=== PATIENT | female | born 1950 | race American Indian/Alaskan Native ===

== ENCOUNTER 2017-01-29 11:29 | Emergency (ER) | payer MEDICARE ==
--- NOTE | 2017-01-29 11:56 | Emergency Department Report ---
Entered by JAMMIE NIELSEN, acting as scribe for ARIES BAÑUELOS NP. Stated Complaint: TRIGEMINAL FLARE UP Time Seen by Provider: 01/29/17 11:49 - HPI History of Present Illness: 66 y/o female PMHx of TMJ, presents with jaw pain. She denies toothache - ROS Review of Systems: + jaw pain - Exam Physical Exam: GENERAL: The patient is a well-developed, well-nourished male in no apparent distress. Patient is alert and oriented x3. ENT: Left TMJ tenderness MSE screening note: Focused history and physical exam performed. Due to findings the following was ordered: ED Disposition for MSE Condition: Stable This documentation as recorded by the scribe,JAMMIE NIELSEN,accurately reflects the service I personally performed and the decisions made by ,ARIES BAÑUELOS, PASTE MAKER.
[2017-01-29] MEDS ORDERED: ZOFRAN IV ONE (15:46)
[2017-01-29] MEDS ORDERED: TORADOL IV ONE (15:46)
[2017-01-29] MEDS ORDERED: DILAUDID IV ONE ×2 (15:46→17:39)
[2017-01-29 17:01] VITALS: BP 144/78
--- NOTE | 2017-01-29 18:20 | Emergency Department Report ---
ED General Adult HPI - General Chief complaint: Neuro Symptoms/Deficit Stated complaint: TRIGEMINAL FLARE UP Time Seen by Provider: 01/29/17 11:49 Source: patient Mode of arrival: Ambulatory Limitations: No Limitations - History of Present Illness Initial comments: Chief complaint: Left face pain HPI: 56-year-old female with a past medical history hypertension and trigeminal neuralgia presents to the hospital with exacerbation of her chronic pain. Patient states she has been dealing with this pain for "a long time". She then evaluated by several neurologist and had trials of multiple medications without any relief. Patient currently taking gabapentin. Pain changes in sensation and does not always feel the same. Pain is currently rated 10/10 in intensity. Worse with palpation, chewing, and movement of face/jaw. Patient chronically has difficulty chewing and drinking cold liquids and only is able to tolerate temperature liquids and drink nutritional supplements. Patient's compliant with gabapentin for pain. He denies any toothache, fevers, or suspicion for new pathology. Patient states she has chronic facial asymmetry in her left side appears more puffy than the right. Severity scale (0 -10): 6 - Related Data Previous Rx's Medication Instructions Recorded Last Taken Type Oxycodone HCl/Acetaminophen 1 each PO Q6HR PRN #20 tablet 01/29/17 Unknown Rx [Percocet 10/325 mg] Allergies Allergy/AdvReac Type Severity Reaction Status Date / Time No Known Allergies Allergy Unverified 01/29/17 11:48 ED Review of Systems ROS: Stated complaint: TRIGEMINAL FLARE UP Other details as noted in HPI Comment: All other systems reviewed and negative Other: Constitutional: No fevers chills Eyes: No eye pain visual changes ENT: As per HPI Head: Atraumatic Respiratory: Denies cough wheezing shortness of breath Cardiovascular: Denies chest pain, palpitations, syncope GI: Denies abdominal pain, nausea, vomiting, diarrhea : Denies dysuria Musculoskeletal: Denies back pain Skin: Denies rash, lesions, erythema Neurologic: Denies headache, numbness, weakness Psychiatric: Denies suicidal ideation, hallucinations ED Past Medical Hx - Past Medical History Previous Medical History?: Yes Hx Hypertension: Yes Additional medical history: Trigeminal neuralgia - Surgical History Past Surgical History?: Yes Additional Surgical History: Laminectomy - Social History Smoking Status: Never Smoker Substance Use Type: Alcohol, Prescribed - Medications Home Medications: Home Medications Medication Instructions Recorded Confirmed Last Taken Type Oxycodone HCl/Acetaminophen 1 each PO Q6HR PRN #20 tablet 01/29/17 Unknown Rx [Percocet 10/325 mg] ED Physical Exam - General Limitations: No Limitations - Other Other exam information: General: No limitations, patient is alert in no acute distress Head exam: Atraumatic, normocephalic Eyes exam: Normal appearance, pupils equal reactive to light, extraocular movements intact ENT: Flat appearing nasolabial fold right-sided compared to the left which patient states is chronic pain. Patient unable to open her mouth completely secondary to pain. Tenderness to palpation in the left lower half of face. Neck exam: Normal inspection, full range of motion Respiratory exam: Clear to auscultation bilateral, no wheezes, rales, crackles Cardiovascular: Normal rate and rhythm Abdomen: Soft, nondistended, and nontender, with normal bowel sounds, no rebound, or guarding Extremity: Full range of motion normal inspection no deformity Back: Normal Inspection, full range of motion, no tenderness Neurologic: Alert, oriented x3, cranial nerves intact, no motor or sensory deficit Psychiatric: normal affect, normal mood Skin: Warm, dry, intact ED Course Vital Signs 01/29/17 01/29/17 01/29/17 11:48 15:00 17:00 Temperature 97.8 F Pulse Rate 80 82 82 Respiratory 20 16 16 Rate Blood Pressure 145/97 Blood Pressure 142/58 144/78 [Right] O2 Sat by Pulse 98 100 100 Oximetry - Reevaluation(s) Reevaluation #1: 01/29/17 18:20 Pain improved with the Dilaudid 0.5, Toradol, and Zofran purposes. Patient requests an additional dose. Second dose was 1 mg. ED Medical Decision Making - Medical Decision Making Patient says that this is not a dental infection. This is an exacerbation of her chronic trigeminal neuralgia. Patient offered outpatient narcotic medication and she is requesting Percocet 10 mg. Outpatient follow-up will be encouraged with her neurologist. - Differential Diagnosis trigeminal neuralgia, chronic pain, dental infection Critical Care Time: No Critical care attestation.: If time is entered above; I have spent that time in minutes in the direct care of this critically ill patient, excluding procedure time. ED Disposition Clinical Impression: Trigeminal neuralgia of left side of face Disposition: DC- TO HOME OR SELFCARE Is pt being admited?: No Does the pt Need Aspirin: No Condition: Stable Instructions: Trigeminal Neuralgia (ED) Additional Instructions: Take the medication as prescribed. Return if symptoms worsen. Follow-up with the neurologist for further management. Prescriptions: Oxycodone HCl/Acetaminophen [Percocet 10/325 mg] 1 each PO Q6HR PRN #20 tablet PRN Reason: Pain Referrals: KELLY BARKER MD [Primary Care Provider] - 3-5 Days your, neurologist [Other] - 3-5 Days Time of Disposition: 18:22
== END 2017-01-29 19:00 | disposition home or self-care (01) ==
LOC: ED 11:29
DX: G50.0 Trigeminal neuralgia (principal); I10 Essential (primary) hypertension
CPT/HCPCS: 96374; 96375; 96376; 99283; J1170; J1885; J2405

== ENCOUNTER 2017-02-14 14:24 | Emergency (ER) | payer MEDICARE ==
[2017-02-14 14:37] VITALS: BP 145/99
[2017-02-14] MEDS ORDERED: TORADOL IM ONE (16:47)
--- NOTE | 2017-02-14 17:15 | Emergency Department Report ---
Entered by ALY LOVE, acting as scribe for NIKI RUIZ NP. ED Neuro Deficit HPI - General Chief Complaint: Neuro Symptoms/Deficit Stated Complaint: MOUTH PAIN Time Seen by Provider: 02/14/17 16:30 Source: patient Mode of arrival: Ambulatory Limitations: No Limitations - History of Present Illness Initial Comments: 66 year old female with PMHx of TMJ ( 2 years) and HTN presents to ED with c/o left sided jaw pain that started this morning. Patient reports aggravation while chewing and alleviated with nothing. Patient states that she feels weakness in her left jaw area, but denies fever, chills, nausea, vomiting, SOB, headache or dizziness, visual changes, and blurry changes. She has been regularly following up with neurologist and her PCP. NKDA. -: This morning Location: speech, left face Presenting Symptoms: Present: Weak/Paralyzed One Side (right), Unable to Speak Clearly. Absent: Blurred/Loss of Vision, Facial Droop/Numbness History of same: Yes (2 years ) Place: home Severity: moderate Quality: weak, numb, constant Improves With: none Worsens With: other (chewing/eating) Context: gradual onset Associated Symptoms: denies other symptoms, weakness (left side jaw). denies: confusion, chest pain, cough, diaphoresis, fever/chills, headaches, loss of appetite, nausea/vomiting Treatments Prior to Arrival: none - Related Data Home Medications: Previous Rx's Medication Instructions Recorded Last Taken Type Oxycodone HCl/Acetaminophen 1 each PO Q6HR PRN #20 tablet 01/29/17 Unknown Rx [Percocet 10/325 mg] Allergies/Adverse Reactions: Allergies Allergy/AdvReac Type Severity Reaction Status Date / Time No Known Allergies Allergy Unverified 01/29/17 11:48 ED Review of Systems Comment: All other systems reviewed and negative Constitutional: no symptoms reported Eyes: denies: eye pain, eye discharge, vision change ENT: dental pain (mouth pain). denies: ear pain, throat pain, hearing loss, congestion Respiratory: denies: cough, shortness of breath, wheezing Cardiovascular: denies: chest pain, palpitations Gastrointestinal: denies: abdominal pain, nausea, diarrhea Musculoskeletal: denies: back pain, joint swelling, arthralgia, myalgia Skin: denies: rash, lesions Neurological: weakness (mouth). denies: headache, paresthesias ED Past Medical Hx - Past Medical History Previous Medical History?: Yes Hx Hypertension: Yes Additional medical history: Trigeminal neuralgia - Surgical History Past Surgical History?: Yes Additional Surgical History: Laminectomy - Social History Smoking Status: Former Smoker Substance Use Type: Prescribed - Medications Home Medications: Home Medications Medication Instructions Recorded Confirmed Last Taken Type Oxycodone HCl/Acetaminophen 1 each PO Q6HR PRN #20 tablet 01/29/17 Unknown Rx [Percocet 10/325 mg] ED Neuro Physical Exam - General Limitations: No Limitations General appearance: alert, in no apparent distress Suspected Stroke: No - Head Head exam: Present: atraumatic, normocephalic - Eye Eye exam: Present: normal appearance, PERRL, EOMI Pupils: Present: normal accommodation. Absent: irregular - ENT ENT exam: Present: normal orophraynx, mucous membranes moist - Neck Neck exam: Present: normal inspection, full ROM. Absent: tenderness, meningismus, lymphadenopathy - Respiratory Respiratory exam: Present: normal lung sounds bilaterally. Absent: respiratory distress, wheezes, rales, rhonchi, stridor - Cardiovascular Cardiovascular Exam: Present: regular rate, normal rhythm, normal heart sounds. Absent: systolic murmur, diastolic murmur, rubs, gallop - GI/Abdominal GI/Abdominal exam: Present: soft, normal bowel sounds. Absent: distended, tenderness, guarding, rebound, rigid, diminished bowel sounds - Extremities Exam Extremities exam: Present: normal inspection, full ROM, normal capillary refill. Absent: pedal edema - Back Exam Back exam: Present: normal inspection, full ROM - Neurological Exam Neurological exam: Present: alert, oriented X3, CN II-XII intact - NIHSS Assessment Interval: Baseline 1a. Level of Consciousness: alert 1b. LOC Questions: answers correctly 1c. LOC Commands: performs tasks correctly 2. Best Gaze: normal 3. Visual: no visual loss 4. Facial Palsy: normal symmetrical movement 5b. Motor Arm Right: no drift 5a. Motor Arm Left: no drift 6a. Motor Leg Left: no drift 6b. Motor Leg Right: no drift 8. Sensory: normal 9. Best Language: no aphasia 10. Dysarthria: normal 11. Extinction/Inattention: no abnormality - Psychiatric Psychiatric exam: Present: normal affect, normal mood - Skin Skin exam: Present: warm, dry, intact. Absent: rash ED Course Vital Signs 02/14/17 14:31 Temperature 98.1 F Pulse Rate 91 H Respiratory 18 Rate Blood Pressure 145/99 O2 Sat by Pulse 99 Oximetry - Medical Decision Making pt is a 66 y/o aaf with of trigeminal Neuralgia follow by doctor Camejo Neurology and Dr. Springer PCP, pt dx with trigeminal neuralgia 3 yrs ago resulting in pain and intermittent left facial paresthesia, no paresthesia at this time CN II - XII are grossling intact there is no tearing, no facial droop , gag reflex intact pt tolerating po intake without difficulty pt described 5/ 10 facial pain , seen by pcp today advised to report to ed for pain injection. pt rx tramadol , gabapentin, and Klonipin for pain and anxiety control , pt advises that she has all medications in her possession however left them at home , plan: exam benign will rx Tramadol IM x 1 and dc to self pt will take scheduled meds upon arrival to home and continue to follow up with neurology and primary as scheduled pt verbalized understanding and agreement with discharge plan. pain is improved with IM toradol ED Disposition Clinical Impression: Trigeminal neuralgia of left side of face Disposition: DC-01 TO HOME OR SELFCARE Is pt being admited?: No Does the pt Need Aspirin: No Condition: Good Instructions: Trigeminal Neuralgia (ED) Additional Instructions: Continue to follow up with Dr. Camejo, and Dr Hernández as shceduled Referrals: PRIMARY CARE, [Primary Care Provider] - 3-5 Days Forms: Work/School Release Form(ED) Time of Disposition: 17:15 This documentation as recorded by the IVAN irene PEARL,accurately reflects the service I personally performed and the decisions made by me,NIKI RUIZ, KALEN.
== END 2017-02-14 17:24 | disposition home or self-care (01) ==
LOC: ED 14:24
DX: G50.0 Trigeminal neuralgia (principal); I10 Essential (primary) hypertension; Z87.891 Personal history of nicotine dependence
CPT/HCPCS: 96372; 99282; J1885

== ENCOUNTER 2017-02-15 01:21 | Emergency (ER) | payer MEDICARE ==
[2017-02-15 02:16] VITALS: BP 150/89
== END 2017-02-15 02:18 | disposition left against medical advice (07) ==
LOC: ED 01:21
DX: R68.84 Jaw pain (principal); R51 Headache; Z53.21 Procedure and treatment not carried out due to patient leaving prior to being seen by health care provider

== ENCOUNTER 2017-03-28 08:04 | Emergency (ER) | payer MEDICARE ==
[2017-03-28 10:01] LABS: Basophils % (Auto) 0.5 % (0.0-1.8); Eosinophils % (Auto) 0.6 % (0.0-4.3); Hematocrit 45.7 % (30.3-42.9); Hemoglobin 14.8 gm/dl (10.1-14.3); Mean Corpuscular HGB Conc 32 % (30-34); Mean Corpuscular Hemoglobin 29 pg (28-32); Mean Corpuscular Volume 89 fl (79-97); Platelet Count 205 K/mm3 (140-440); Red Blood Count 5.12 M/mm3 (3.65-5.03); White Blood Count 6.5 K/mm3 (4.5-11.0)
[2017-03-28 10:17] LABS: Alanine Aminotransferase 17 units/L (7-56); Albumin 4.1 g/dL (3.9-5); Albumin/Globulin Ratio 1.2 %; Alkaline Phosphatase 52 units/L (35-129); Anion Gap 18 mmol/L; BUN/Creatinine Ratio 14.28; Blood Urea Nitrogen 10 mg/dL (7-17); Calcium 9.4 mg/dL (8.4-10.2); Carbon Dioxide 23 mmol/L (22-30); Chloride 100.9 mmol/L (98-107); Glucose 89 mg/dL (65-100); Potassium 4.4 mmol/L (3.6-5.0); Sodium 137 mmol/L (137-145); Total Protein 7.6 g/dL (6.3-8.2)
[2017-03-28] MEDS ORDERED: D50W (25GM) IV ONE (13:32)
[2017-03-28] MEDS ORDERED: TORADOL IM ONE (14:05)
[2017-03-28] MEDS ORDERED: BENADRYL IM ONE (14:05)
--- NOTE | 2017-03-28 14:24 | Emergency Department Report ---
ED General Adult HPI - General Chief complaint: Pain General Stated complaint: BACK PAIN Time Seen by Provider: 03/28/17 14:04 Source: patient Mode of arrival: Ambulatory Limitations: No Limitations - History of Present Illness Initial comments: facial pain hx of trigeminal Neuralgia follow by Dr. Stroud will see him in 3 days , started on Nucynta advise pain got worse, but cannot see primary until saturday , denies sob tolerating po intake, complains of 6/10 pain no paralysis no cp no sob this is consistent with previous exacerbations same location intenisity and duration. Onset/Timin -: days(s) Location: face, mouth Radiation: non-radiation Severity scale (0 -10): 5 Quality: aching Consistency: constant Worsens with: none Associated Symptoms: denies: confusion, chest pain, fever/chills, headaches, nausea/vomiting, rash, shortness of breath, syncope, weakness Treatments Prior to Arrival: none - Related Data Previous Rx's Medication Instructions Recorded Last Taken Type Oxycodone HCl/Acetaminophen 1 each PO Q6HR PRN #20 tablet 01/29/17 Unknown Rx [Percocet 10/325 mg] diphenhydrAMINE [Benadryl CAP] 25 mg PO Q8HR PRN #15 capsule 03/28/17 Unknown Rx traMADol [Ultram] 50 mg PO Q6HR PRN #15 tablet 03/28/17 Unknown Rx Allergies Allergy/AdvReac Type Severity Reaction Status Date / Time No Known Allergies Allergy Unverified 01/29/17 11:48 ED Review of Systems ROS: Stated complaint: BACK PAIN Other details as noted in HPI Constitutional: denies: chills, fever Eyes: denies: eye pain, eye discharge, vision change ENT: other (mouth and face pain ) Respiratory: denies: cough, shortness of breath, wheezing Cardiovascular: denies: chest pain, palpitations Endocrine: no symptoms reported Gastrointestinal: denies: abdominal pain, nausea, diarrhea Genitourinary: denies: urgency, dysuria, discharge Musculoskeletal: denies: back pain, joint swelling, arthralgia Skin: denies: rash, lesions Neurological: other (face and mouth pain aching ). denies: headache, weakness, numbness, paresthesias, confusion, abnormal gait, vertigo Psychiatric: denies: anxiety, depression Hematological/Lymphatic: denies: easy bleeding, easy bruising ED Past Medical Hx - Past Medical History Previous Medical History?: Yes Hx Hypertension: Yes Additional medical history: Trigeminal neuralgia - Surgical History Past Surgical History?: Yes Additional Surgical History: Laminectomy - Social History Smoking Status: Never Smoker Substance Use Type: None - Medications Home Medications: Home Medications Medication Instructions Recorded Confirmed Last Taken Type Oxycodone HCl/Acetaminophen 1 each PO Q6HR PRN #20 tablet 01/29/17 Unknown Rx [Percocet 10/325 mg] diphenhydrAMINE [Benadryl CAP] 25 mg PO Q8HR PRN #15 capsule 03/28/17 Unknown Rx traMADol [Ultram] 50 mg PO Q6HR PRN #15 tablet 03/28/17 Unknown Rx ED Physical Exam - General Limitations: No Limitations General appearance: alert, in no apparent distress - Head Head exam: Present: atraumatic, normocephalic - Eye Eye exam: Present: normal appearance, PERRL, EOMI - ENT ENT exam: Present: normal orophraynx, mucous membranes moist, TM's normal bilaterally, normal external ear exam - Expanded ENT Exam Expanded Mouth exam: Present: normal external inspection, tongue normal. Absent: drooling, trismus, muffled voice, tongue elevation, laceration Teeth exam: Present: normal inspection Throat exam: Positive: normal inspection. Negative: tonsillar erythema, tonsillomegaly, tonsillar exudate, R peritonsillar mass, L peritonsillar mass ( airway patent uvula midline no stridor no swelling no exudate no lesions no erythema ) - Neck Neck exam: Present: normal inspection, full ROM. Absent: tenderness, lymphadenopathy, thyromegaly - Respiratory Respiratory exam: Present: normal lung sounds bilaterally. Absent: respiratory distress, wheezes, rhonchi, stridor - Cardiovascular Cardiovascular Exam: Present: regular rate, normal rhythm. Absent: systolic murmur, diastolic murmur, rubs, gallop - GI/Abdominal GI/Abdominal exam: Present: soft, normal bowel sounds - Rectal Rectal exam: Present: deferred - Extremities Exam Extremities exam: Present: normal inspection, full ROM, normal capillary refill. Absent: tenderness, pedal edema, joint swelling, calf tenderness - Back Exam Back exam: Present: normal inspection, full ROM. Absent: CVA tenderness (R), CVA tenderness (L) - Neurological Exam Neurological exam: Present: alert, oriented X3, CN II-XII intact, normal gait. Absent: motor sensory deficit, reflexes normal - Expanded Neurological Exam Expanded Patient oriented to: Present: person, place, time Speech: Present: fluid speech. Absent: expressive aphasia Cranial nerves: EOM's Intact: Normal, Gag Reflex: Normal, Tongue Deviation: Normal, Nystagmus: Normal, Facial Sensation: Normal (no numbness at this time) Cerebellar function: Finger to Nose: Normal Upper motor neuron: Armaan Neglect: Normal, Pronator Drift: Normal, Babinski Sign : Normal Sensory exam: Upper Extremity Light Touch: Normal, Upper Extremity Pin Prick: Normal, Upper Extremity Temperature: Normal, UE 2 Point Discrimination: Normal, Lower Extremity Light Touch: Normal, Lower Extremity Pin Prick: Normal, Lower Extremity Temperature: Normal, LE 2 Point Discrimination: Normal Motor strength exam: RUE: 5, LUE: 5, RLE: 5, LLE: 5 DTR: bicep (R): 2+, bicep (L): 2+, tricep (R): 2+, tricep (L): 2+, ankle (R): 2+ , ankle (L): 2+ Best Eye Response (Baudette): (4) open spontaneously Best Motor Response (Yuri): (6) obeys commands Best Verbal Response (Baudette): (5) oriented Yuri Total: 15 - Psychiatric Psychiatric exam: Present: normal affect, anxious - Skin Skin exam: Present: warm, dry, intact, normal color. Absent: rash ED Course Vital Signs 03/28/17 03/28/17 03/28/17 08:07 11:20 11:32 Temperature 98.2 F 98.6 F Pulse Rate 78 106 H Respiratory 22 18 16 Rate Blood Pressure 154/96 Blood Pressure 159/85 [Left] O2 Sat by Pulse 100 98 98 Oximetry ED Medical Decision Making - Lab Data Result diagrams: 03/28/17 09:38 03/28/17 09:38 - Medical Decision Making Pt is as 66 y/o aaf with hx of trigeminal Neuralgia facial pain pt is follow by Dr. Stroud will see him in 3 days , started on Nucynta 1 week ag advises pain got worse, but cannot see primary until saturday , denies sob tolerating po intake, complains of 6/10 pain no paralysis no cp no sob this is consistent with previous exacerbations same location intenisity and duration symptoms improved with benadryl and toradol IM given in ED plan: DC with benadryl po and ultram and follow up with Dr Stroud on saturday (3days) as scheduled pt verbalized agreement understanding with discharge plan. pt is currently tolerating po intake without difficulty gag intact no oral swelling no stridor no sob no paralysis no numbness no tingling at this time. Critical care attestation.: If time is entered above; I have spent that time in minutes in the direct care of this critically ill patient, excluding procedure time. ED Disposition Clinical Impression: Trigeminal neuralgia pain Disposition: DC/TX-65 PSY HOSP/PSY UNIT Is pt being admited?: No Does the pt Need Aspirin: No Condition: Good Instructions: Trigeminal Neuralgia (ED) Additional Instructions: follow up with Dr Stroud on saturday as scheduled Prescriptions: diphenhydrAMINE [Benadryl CAP] 25 mg PO Q8HR PRN #15 capsule PRN Reason: allergies traMADol [Ultram] 50 mg PO Q6HR PRN #15 tablet PRN Reason: Pain Referrals: PRIMARY CARE, [Primary Care Provider] - 3-5 Days Forms: Work/School Release Form(ED) Time of Disposition: 14:59
[2017-03-28 15:06] VITALS: BP 147/81
== END 2017-03-28 15:06 ==
LOC: ED 08:04
DX: G50.0 Trigeminal neuralgia (principal); I10 Essential (primary) hypertension
CPT/HCPCS: 36415; 80053; 85025; 96372; 99283; J1200; J1885

== ENCOUNTER 2017-10-14 12:11 | Emergency (ER) | payer MEDICARE ==
[2017-10-14 12:19] VITALS: BP 141/104
--- NOTE | 2017-10-14 19:53 | Emergency Department Report ---
HPI - General Chief Complaint: Pain General Time Seen by Provider: 10/14/17 19:47 ED Past Medical Hx - Past Medical History Hx Hypertension: Yes Additional medical history: Trigeminal neuralgia - Surgical History Additional Surgical History: Laminectomy - Social History Smoking Status: Former Smoker Substance Use Type: None - Medications Home Medications: Home Medications Medication Instructions Recorded Confirmed Last Taken Type Oxycodone HCl/Acetaminophen 1 each PO Q6HR PRN #20 tablet 01/29/17 Unknown Rx [Percocet 10/325 mg] diphenhydrAMINE [Benadryl CAP] 25 mg PO Q8HR PRN #15 capsule 03/28/17 Unknown Rx traMADol [Ultram] 50 mg PO Q6HR PRN #15 tablet 03/28/17 Unknown Rx HYDROcodone/APAP 5-325 [[place] 1 each PO Q6HR PRN #15 tablet 06/14/17 Unknown Rx 5/325] Ibuprofen Oral Liqd [Motrin] 600 mg PO TID PRN #1 bottle 06/14/17 Unknown Rx ED Review of Systems ROS: Stated complaint: BODY PAIN Other details as noted in HPI Physical Exam - Physical Exam Vital Signs: Vital Signs 10/14/17 12:13 Temperature 98.2 F Pulse Rate 88 Respiratory 16 Rate Blood Pressure 141/104 O2 Sat by Pulse 98 Oximetry ED Course Vital Signs 10/14/17 12:13 Temperature 98.2 F Pulse Rate 88 Respiratory 16 Rate Blood Pressure 141/104 O2 Sat by Pulse 98 Oximetry Critical care attestation.: If time is entered above; I have spent that time in minutes in the direct care of this critically ill patient, excluding procedure time. ED Disposition Condition: Stable
== END 2017-10-14 19:50 | disposition left against medical advice (07) ==
LOC: ED 12:11
DX: M79.1 Myalgia (principal); Z53.21 Procedure and treatment not carried out due to patient leaving prior to being seen by health care provider

== ENCOUNTER 2018-01-07 10:02 | Emergency (ER) | payer MEDICARE ==
[2018-01-07] MEDS ORDERED: NACL 0.9% 1000 ML 0 ML ONE (10:51)
[2018-01-07 11:19] VITALS: BP 129/87
[2018-01-07] MEDS ORDERED: TORADOL IM ONE (12:21)
[2018-01-07] MEDS ORDERED: DELTASONE PO ONE (12:21)
--- NOTE | 2018-01-07 12:22 | Emergency Department Report ---
HPI - General Chief Complaint: Dental/Oral Time Seen by Provider: 01/07/18 11:50 - HPI HPI: Patient is a 67-year-old female who presents to ED complaining of history of trigeminal neuralgia with some pain. Patient states she is the diagnosis for the past 5 years. Patient states she ran out of her medication and is in some pain today. She denies trauma, injuries or falls. She denies fevers/chills nausea vomiting or any other problems. ED Past Medical Hx - Past Medical History Previous Medical History?: Yes Hx Hypertension: Yes Additional medical history: Trigeminal neuralgia - Surgical History Past Surgical History?: Yes Additional Surgical History: Laminectomy - Social History Smoking Status: Former Smoker Substance Use Type: Prescribed - Medications Home Medications: Home Medications Medication Instructions Recorded Confirmed Last Taken Type Oxycodone HCl/Acetaminophen 1 each PO Q6HR PRN #20 tablet 01/29/17 Unknown Rx [Percocet 10/325 mg] diphenhydrAMINE [Benadryl CAP] 25 mg PO Q8HR PRN #15 capsule 03/28/17 Unknown Rx traMADol [Ultram] 50 mg PO Q6HR PRN #15 tablet 03/28/17 Unknown Rx Ibuprofen Oral Liqd [Motrin] 600 mg PO TID PRN #1 bottle 06/14/17 Unknown Rx HYDROcodone/APAP 5-325 [[place] 1 each PO Q6HR PRN #15 tablet 01/07/18 Unknown Rx 5-325 mg TAB] ED Review of Systems ROS: Stated complaint: PAIN IN MOUTH Other details as noted in HPI Constitutional: denies: chills, fever Eyes: denies: eye pain, eye discharge, vision change ENT: denies: ear pain, throat pain Respiratory: denies: cough, shortness of breath, wheezing Cardiovascular: denies: chest pain, palpitations Endocrine: no symptoms reported Gastrointestinal: denies: abdominal pain, nausea, diarrhea Genitourinary: denies: urgency, dysuria, discharge Musculoskeletal: denies: back pain, joint swelling, arthralgia Skin: denies: rash, lesions Neurological: denies: headache, weakness, paresthesias Psychiatric: denies: anxiety, depression Hematological/Lymphatic: denies: easy bleeding, easy bruising Physical Exam - Physical Exam Vital Signs: Vital Signs 01/07/18 11:15 Temperature 97.8 F Pulse Rate 85 Respiratory 20 Rate Blood Pressure 129/87 O2 Sat by Pulse 98 Oximetry Physical Exam: GENERAL: Alert and oriented x3, no apparent distress, Normal Gait, atraumatic. HEAD: Head is normocephalic and a-traumatic. EYES: Extra ocular muscles are intact. Pupils are equal, round, and reactive to light and accommodation. MOUTH:Mouth is well hydrated and without lesions. Tonsils nonerythematous or swollen, Uvula midline, Tongue not elevated. Mucous membranes are moist. Posterior pharynx clear, no exudate or lesions. Patent airways. Patient able to open mouth without any problems. TMJ tenderness. No clicking NECK: Supple. Non edematous, No carotid bruits. No lymphadenopathy or thyromegaly. No C-spine tenderness NEUROLOGIC: The patient is cooperative with no focal neurologic deficits. Cranial nerves II through XII are grossly intact. Normal speech. Normal sensation in bilateral upper and lower extremities, No loss of sensation, No facial droop SKIN: Warm and dry, No lesions, No ulceration or induration present. ED Course Vital Signs 01/07/18 11:15 Temperature 97.8 F Pulse Rate 85 Respiratory 20 Rate Blood Pressure 129/87 O2 Sat by Pulse 98 Oximetry ED Medical Decision Making - Medical Decision Making This 7-year-old female presents from with pain from trigeminal neuralgia ED course: Patient received Toradol and prednisone ED. Discussed the patient to follow up with her primary care physician for continued management Discussed a couple of days' worth of pain relief. Discussed with the patient and she has any worsening symptoms or chest ED immediately. Vital signs are normal patient is an Critical care attestation.: If time is entered above; I have spent that time in minutes in the direct care of this critically ill patient, excluding procedure time. ED Disposition Clinical Impression: Trigeminal neuralgia Disposition: DC-01 TO HOME OR SELFCARE Is pt being admited?: No Does the pt Need Aspirin: No Condition: Stable Instructions: Trigeminal Neuralgia (ED) Additional Instructions: Make sure to follow up with the primary care physician as discussed. Take all your medications as you've been prescribed. If you have any worsening symptoms or develop new symptoms please return to ED immediately. Prescriptions: HYDROcodone/APAP 5-325 [[place] 5-325 mg TAB] 1 each PO Q6HR PRN #15 tablet PRN Reason: Pain Referrals: KELLY BARKER MD [Primary Care Provider] - 3-5 Days Forms: Work/School Release Form(ED) Time of Disposition: 12:54
== END 2018-01-07 13:19 | disposition home or self-care (01) ==
LOC: ED 10:02
DX: G50.0 Trigeminal neuralgia (principal); I10 Essential (primary) hypertension; Z87.891 Personal history of nicotine dependence
CPT/HCPCS: 96372; 99282; J1885; J7512; J7030

== ENCOUNTER 2018-01-10 11:42 | Emergency (ER) | payer MEDICARE ==
[2018-01-10 11:54] VITALS: BP 126/85
[2018-01-10] MEDS ORDERED: TORADOL IM ONE (14:52)
[2018-01-10] MEDS ORDERED: BENADRYL PO ONE (14:53)
--- NOTE | 2018-01-10 14:57 | Emergency Department Report ---
HPI - General Chief Complaint: Back Pain/Injury Time Seen by Provider: 01/10/18 14:47 - HPI HPI: The patient's is 67-year-old female presents for evaluation of left facial pain. The patient reports 1 day of constant 10/10 in severity sharp and shooting left-sided facial pain radiating to the distal lower face and jaw exacerbated with opening of the mouth or chewing. The patient denies fever, head injury, headache, neck pain, neck stiffness, vision or hearing changes, smell or taste changes, paresthesias, facial drooping, slurred speech, seizure- like activity, urine or bowel incontinence or retention, or other focal neurological deficit. ED Past Medical Hx - Past Medical History Hx Hypertension: Yes Additional medical history: Trigeminal neuralgia - Surgical History Additional Surgical History: Laminectomy - Social History Smoking Status: Never Smoker Substance Use Type: None - Medications Home Medications: Home Medications Medication Instructions Recorded Confirmed Last Taken Type Oxycodone HCl/Acetaminophen 1 each PO Q6HR PRN #20 tablet 01/29/17 Unknown Rx [Percocet 10/325 mg] diphenhydrAMINE [Benadryl CAP] 25 mg PO Q8HR PRN #15 capsule 03/28/17 Unknown Rx traMADol [Ultram] 50 mg PO Q6HR PRN #15 tablet 03/28/17 Unknown Rx Ibuprofen Oral Liqd [Motrin] 600 mg PO TID PRN #1 bottle 06/14/17 Unknown Rx HYDROcodone/APAP 5-325 [[place] 1 each PO Q6HR PRN #15 tablet 01/07/18 Unknown Rx 5-325 mg TAB] Ibuprofen [Motrin] 800 mg PO Q8HR PRN #15 tablet 01/10/18 Unknown Rx traMADol [Ultram 50 MG tab] 50 mg PO Q6HR PRN #10 tablet 01/10/18 Unknown Rx ED Review of Systems ROS: Stated complaint: FACIAL PAIN Other details as noted in HPI Constitutional: denies: fever HEENT: reports facial pain denies: throat or neck pain Respiratory: denies: cough, shortness of breath Cardiovascular: denies: chest pain Endocrine: denies unexplained weight loss or gain Gastrointestinal: denies: abdominal pain, nausea Genitourinary: denies: dysuria Musculoskeletal: denies: leg swelling Skin: denies: rash Neurological: denies: headache Hematological/Lymphatic: denies: easy bleeding or easy bruising Psych: denies sadness or hopelessness Physical Exam - Physical Exam Vital Signs: Vital Signs 01/10/18 11:50 Temperature 98.2 F Pulse Rate 78 Respiratory 18 Rate Blood Pressure 126/85 O2 Sat by Pulse 98 Oximetry Physical Exam: General: well-nourished, well-developed, no acute distress Head: Normocephalic, atraumatic, percussion of the left TMJ reproduces sharp shooting pain from the left jaw down and mandible and into teeth, patient able to open and close mouth, no locking of the jaw bilaterally, no intraoral redness , swelling, fluctuance, or sign of dental abscess, no facial swelling Eyes: normal sclera ENT: Mucous membranes are pink and moist Neck: trachea midline, neck supple, No neck stiffness, no cervical adenopathy Respiratory: Breath sounds equal bilaterally, no wheezing, rales, or rhonchi Cardio: S1 and S2 present, no murmurs, rubs, gallops, capillary refill is brisk Musc: No pitting edema Skin: No rash Neuro: no facial drooping, normal speech Psych: Normal affect ED Course Vital Signs 01/10/18 11:50 Temperature 98.2 F Pulse Rate 78 Respiratory 18 Rate Blood Pressure 126/85 O2 Sat by Pulse 98 Oximetry ED Medical Decision Making - Medical Decision Making Patient seen and evaluated by myself. Patient's found have findings consistent with trigeminal neuralgia. Patient given an IM dose of Toradol a total Benadryl. The patient was reevaluated and reported that their symptoms were improved. The patient is stable for discharge with outpatient follow-up. The patient is given follow-up and return instructions. The patient is counseled regarding need for follow-up outpatient PCP and neurology, and that the emergency department is not appropriate for continued pain treatment. The patient expressed understanding and agreed with the plan. The patient is discharged in stable condition. Critical care attestation.: If time is entered above; I have spent that time in minutes in the direct care of this critically ill patient, excluding procedure time. ED Disposition Clinical Impression: Trigeminal neuralgia, Left-sided face pain Disposition: - TO HOME OR SELFCARE Is pt being admited?: No Does the pt Need Aspirin: No Condition: Stable Instructions: Trigeminal Neuralgia (ED) Referrals: GERALDINE CALDERON MD [Staff Physician] - 3-5 Days JOS BARTLETT MD [Staff Physician] - 3-5 Days BRITNEY SILVA MD [Staff] - 3-5 Days Time of Disposition: 14:53
[2018-01-10] MEDS ORDERED: KEPPRA 1,000 MG/NS 0.75% 100ML 1,000 MG/100 ML BAG IV ONE (18:52)
== END 2018-01-10 15:30 | disposition home or self-care (01) ==
LOC: ED 11:42
DX: G50.0 Trigeminal neuralgia (principal); R51 Headache; I10 Essential (primary) hypertension
CPT/HCPCS: 96372; 99282; J1885; J1953